=== PATIENT | female | born 1990 | race Caucasian/White ===

== ENCOUNTER 2024-10-05 10:56 | Emergency (ER) | payer BC ==
[2024-10-05 11:07] VITALS: BP 130/85; PULSE 77
[2024-10-05] MEDS: Sodium Chloride 0.9% 1,000 ML IV ONE (12:37)
[2024-10-05] MEDS: Metoclopramide 10 MG/2 ML SDV IVPUSH ONE (12:38)
[2024-10-05] MEDS: Ketorolac 30 MG/ML SDV IVPUSH ONE (13:32)
[2024-10-05] MEDS: diphenhydrAMINE 50 MG/ML SDV IVPUSH ONE (13:37)
== END 2024-10-05 14:20 | disposition home or self-care (01) ==
LOC: JD.ED 10:56 → MERGE 10:56 → JD.ED 14:20
DX: G43.909 Migraine, unspecified, not intractable, without status migrainosus (principal); K21.9 Gastro-esophageal reflux disease without esophagitis; Z90.49 Acquired absence of other specified parts of digestive tract; Z79.899 Other long term (current) drug therapy
CPT/HCPCS: 70450; 81025; 96361; 96374; 96375; 99284; J1885; J2765; J7030